=== PATIENT | male | born 1950 | race Caucasian/White ===

== ENCOUNTER 2020-07-06 10:12 | Emergency (ER) | payer MEDICARE ==
--- NOTE | 2020-07-06 11:43 | RAD ---
EXAM: Chest,1 View INDICATION: 70 years Male, Covid ? COMPARISON: None available FINDINGS: Single view of the chest was performed. Heart size is within normal limits. The examination is slightly underpenetrated. Hazy appearance of the peripheral midlung bilaterally is favored to be related to underpenetration, although it is difficult to exclude groundglass infiltrate which can be seen in COVID pneumonia. No pleural effusion. No pneumothorax. Remote right acromioclavicular joint deformity and distal left clavicle deformity. Unremarkable appearance of the visualized upper abdomen. IMPRESSION: Hazy appearance of the peripheral midlung bilaterally is favored to be related to underpenetration, although it is difficult to exclude groundglass infiltrate which can be seen in COVID pneumonia. Consider follow-up radiographs. Electronically signed by: Priya Arita MD 07/06/2020 11:41 AM [facility]
--- NOTE | 2020-07-06 12:23 | ED.PDOC ---
History of Present Illness - General Chief Complaint: Respiratory Problem Stated Complaint: Dyspnea, black diarrhea, lower back pain Time Seen by Provider: 07/06/20 10:21 Source: patient Exam Limitations: no limitations - History of Present Illness Initial Comments: 70-year-old male complaining of Covid symptoms for the last 2 days. Patient states that he has had a fever and chills, mild dyspnea worsening with exertion and a cough productive of minimal clear material. He complains of easy fatigue. Symptoms are worse with exertion. Patient has no known exposure to COVID-19. He has not had any upper respiratory symptoms.The patient notes incidentally that he has had diarrhea first occurring Several days ago. It is now slacked off and he has only had about 2 stools in the last 24 hours. His stools are very black. Patient denies abdominal pain or nausea vomiting. He has no prior history of gastrointestinal bleeding or GI problems. Timing/Duration: 1 week Severity: moderate Improving Factors: rest Worsening Factors: other - Exertion Associated Symptoms: cough Allergies/Adverse Reactions: Allergies Cephalexin [From Keflex] Allergy (Verified 07/06/20 11:30) Home Medications: Ambulatory Orders Albuterol 07/06/20 Review of Systems - Review of Systems Constitutional: States: chills, fever, malaise, weakness EENTM: States: no symptoms reported Respiratory: States: cough, short of breath Cardiology: States: no symptoms reported Gastrointestinal/Abdominal: States: see HPI, diarrhea Genitourinary: States: no symptoms reported Musculoskeletal: States: muscle pain Neurological: States: no symptoms reported Endocrine: States: no symptoms reported Past Medical History (General) - Patient Medical History Hx Seizures: No Hx Stroke: No Hx Dementia: No Hx Asthma: Yes Hx of COPD: No Hx Cardiac Disorders: No Hx Congestive Heart Failure: No Hx Pacemaker: No Hx Hypertension: No Hx Thyroid Disease: No Hx Diabetes: No Hx Gastroesophageal Reflux: Yes Hx Renal Disease: No Hx Cancer: No Hx of HIV: No Hx Hepatitis C: No Hx MRSA: No - Vaccination History Hx Influenza Vaccination: Yes Hx Pneumococcal Vaccination: Yes - Social History Hx Tobacco Use: No Hx Alcohol Use: No Family Medical History - Family History Mother Family History: Unknown Living Status: Unknown Physical Exam - Physical Exam General Appearance: Alert, No apparent distress Eye Exam: bilateral conjunctivae pale Ears, Nose, Throat: normal ENT inspection Neck: non-tender, supple Respiratory: lungs clear, normal breath sounds Cardiovascular/Chest: regular rate, rhythm Gastrointestinal/Abdominal: normal bowel sounds, non tender, soft Rectal Exam: other - Dark red stool present in the anal vault.Nursing animal therapist present during exam Extremity: normal range of motion, no pedal edema, no calf tenderness Neurologic: die engraver II-XII nml as tested, no motor/sensory deficits Skin Exam: other - Bilateral conjunctival pallor, pallor Lymphatic: no adenopathy Progress - Progress Progress: 07/06/20 12:27 Digital rectal examination performed with animal therapist present. No tenderness or abnormal lesions noted. Large amount of dark red blood present. No active bleeding from the anus noted. During the examination the patient stated he felt very dizzy but did not pass out. Transfusion request for 2 units packed cells entered.Discussed withMr. Vergara,[facility] need [facility] because GI consultation not available at this facility. Transfer decision made. 07/06/20 12:38 Pulse 98, sats 99%, blood pressure 128/75. IV infusion bolus normal saline 500 mL started. 07/06/20 13:15 At 1:04 PM [facility] transfer center was called to request a transfer bed. A report was given to the transfer nurse. Prior to that calls were made to [facility] in [place]. They had no beds. After that a call was made to [facility] which includes [facility] and other locations. They had no beds. 07/06/20 15:44 [facility] did not have a bed available. A call was placed to the transfer center at [facility]. [facility] request an inpatient bed for this patient. 07/06/20 16:46 Regular transfer center calls and reports no bed except for one facility which Does have a bed but requires a Covid PCR test before consideration. Covid PCR test ordered. 07/06/20 19:38 Covid PCR test results are still pending. Patient is currently receiving a second unit of transfusion. Repeat hemoglobin of 7.7 is noted. Surgeon on- call, Dr. Malik Castano was consulted at 6:30 PM. He stated he would be willing to admit the Patient to the hospital As long as there was no active bleeding. Patient notes he has not had a bowel movement since this morning. Nurse practitioner Jai was consulted at 6:36 PM and again at 7:31 PM. He stated there are now no beds available at [facility]. He recommended that we call the GI group solution spec and [place] to consult regarding the possibility of having the patient have a colonoscopy done here in 2 days. If this were to be arranged Mr. Vergara stated that he would be able to make a bed for the patient here at [facility] tomorrow. 07/06/20 23:37 At 11:35 PM I discussed his case with Dr. Whitten, the hospitalist on-call for [facility] in [place]. A bed was available and he agreed to admit the patient to the medical floor for consultation with the industrial relations worker. 07/07/20 03:58 The patient later left the emergency department by ambulance in good condition. - Results/Orders Results/Orders: 07/06/20 11:00 RAPID SARS-CoV-2 RNA Stat 07/06/20 11:35 PACKED CELLS,LR Routine TYPE AND SCREEN Routine Laboratory Results - last 24 hr 07/06/20 07/06/20 07/06/20 11:10 11:12 11:12 WBC 10.3 RBC 1.66 L Hgb 5.3 L* Hct 15.5 L MCV 93.4 MCH 32.1 H MCHC 34.4 RDW 14.1 Plt Count 183 MPV 6.8 L Absolute Neuts (auto) 8.50 H Absolute Lymphs (auto) 1.00 Absolute Monos (auto) 0.70 Absolute Eos (auto) 0.00 Absolute Basos (auto) 0.10 Neutrophils % 82.8 H Lymphocytes % 9.5 L Monocytes % 6.5 Eosinophils % 0.2 L Basophils % 1.0 PT 10.0 INR 1.01 PTT (SP) 18.0 L Sodium 130 L Potassium 4.3 Chloride 101 Carbon Dioxide 23 Anion Gap 10.3 L BUN 25 H Creatinine 0.97 BUN/Creatinine Ratio 25.8 H Random Glucose 134 H Serum Osmolality 267.2 L Calcium 7.8 L Total Bilirubin 0.3 AST 18 ALT 18 Alkaline Phosphatase 33 L Serum Total Protein 5.1 L Albumin 3.2 Globulin 1.9 L Albumin/Globulin Ratio 1.7 Crossmatch 07/06/20 11:35 WBC RBC Hgb Hct MCV MCH MCHC RDW Plt Count MPV Absolute Neuts (auto) Absolute Lymphs (auto) Absolute Monos (auto) Absolute Eos (auto) Absolute Basos (auto) Neutrophils % Lymphocytes % Monocytes % Eosinophils % Basophils % PT INR PTT (SP) Sodium Potassium Chloride Carbon Dioxide Anion Gap BUN Creatinine BUN/Creatinine Ratio Random Glucose Serum Osmolality Calcium Total Bilirubin AST ALT Alkaline Phosphatase Serum Total Protein Albumin Globulin Albumin/Globulin Ratio Crossmatch See Detail Vital Signs - 24 hr 07/06/20 07/06/20 10:25 12:01 Temperature 98 F Pulse Rate [ 96 H Right Radial] Respiratory 22 20 Rate O2 Sat by Pulse 99 Oximetry EXAM: Chest,1 View INDICATION: 70 years Male, Covid ? COMPARISON: None available FINDINGS: Single view of the chest was performed. Heart size is within normal limits. The examination is slightly underpenetrated. Hazy appearance of the peripheral midlung bilaterally is favored to be related to underpenetration, although it is difficult to exclude groundglass infiltrate which can be seen in COVID pneumonia. No pleural effusion. No pneumothorax. Remote right acromioclavicular joint deformity and distal left clavicle deformity. Unremarkable appearance of the visualized upper abdomen. IMPRESSION: Hazy appearance of the peripheral midlung bilaterally is favored to be related to underpenetration, although it is difficult to exclude groundglass infiltrate which can be seen in COVID pneumonia. Consider follow-up radiographs. Electronically signed by: Priya Arita MD 07/06/2020 11:41 AM ADMINISTRATIVE JUDGE COVID-19 nasal swab negative Vital Signs - 24 hr 07/06/20 07/06/20 07/06/20 10:25 11:13 12:01 Temperature 98 F 98 F Pulse Rate [ 96 H 87 Right Radial] Respiratory 22 18 20 Rate Blood Pressure 114/77 [Left Arm] O2 Sat by Pulse 99 96 Oximetry 07/06/20 07/06/20 07/06/20 12:13 13:00 13:16 Temperature 97.6 F 97.6 F 98 F Pulse Rate [ 81 79 74 Right Radial] Respiratory 18 18 18 Rate Blood Pressure 115/73 114/74 112/72 [Left Arm] O2 Sat by Pulse 99 99 99 Oximetry 07/06/20 07/06/20 07/06/20 13:30 13:45 14:00 Temperature 98.1 F 97.9 F 98.1 F Pulse Rate [ 76 72 74 Right Radial] Respiratory 18 18 18 Rate Blood Pressure 114/74 106/70 114/76 [Left Arm] O2 Sat by Pulse 99 99 99 Oximetry 07/06/20 07/06/20 07/06/20 15:00 15:15 17:00 Temperature 97.5 F L 97.9 F Pulse Rate [ 76 74 76 Right Radial] Respiratory 18 18 16 Rate Blood Pressure 117/79 112/72 128/91 [Left Arm] O2 Sat by Pulse 99 99 96 Oximetry 07/06/20 07/06/20 07/06/20 18:00 19:00 19:28 Temperature 99.2 F Pulse Rate [ 78 82 Right Radial] Respiratory 16 16 Rate Blood Pressure 134/70 137/80 [Left Arm] O2 Sat by Pulse 92 L 98 Oximetry 07/06/20 07/06/20 07/06/20 20:00 21:00 22:00 Temperature Pulse Rate [ 83 86 92 H Right Radial] Respiratory 14 14 14 Rate Blood Pressure 128/80 99/53 117/78 [Left Arm] O2 Sat by Pulse 96 93 L 93 L Oximetry 07/06/20 07/07/20 07/07/20 23:00 00:00 00:13 Temperature 99.3 F 99.3 F Pulse Rate [ 90 89 89 Right Radial] Respiratory 16 16 16 Rate Blood Pressure 96/65 99/67 99/67 [Left Arm] O2 Sat by Pulse 94 L 94 L 94 L Oximetry - EKG/XRAY/CT CT Ordered: No CT Interpretation Call Back: No Departure - Departure Clinical Impression: Peptic ulcer, Anemia GI bleeding Qualifiers: GI bleed type/associated pathology: unspecified gastrointestinal hemorrhage type Qualified Code(s): K92.2 - Gastrointestinal hemorrhage, unspecified ICD-10 Supporting Text: Lower versus upper gastrointestinal bleeding with severe anemia Requiring transfusion Disposition: Transfer to Hospital Departure Forms: ED Discharge - Pt. Copy, Patient Portal Self Enrollment Home Medications: Ambulatory Orders Albuterol 07/06/20 Transfer to Outside Facility - Transfer Information Decision to Transfer Date: 07/06/20 Decision to Transfer Time: 12:29 Reason for Transfer: required specialist not available
[2020-07-06] MEDS ORDERED: ACETAMINOPHEN 325 MG TAB PO ONE (12:26)
[2020-07-06] MEDS ORDERED: diphenhydrAMINE HCL 50 MG/ML VIAL IV ONE (12:26)
[2020-07-06] MEDS ORDERED: SODIUM CHLORIDE 0.9% 500ML 500 ML IVS SCH (12:30)
[2020-07-06] MEDS ORDERED: PANTOPRAZOLE SODIUM IV 40 MG VIAL IV ONE (21:47)
[2020-07-06] MEDS ORDERED: FAMOTIDINE IV PREMIX 20 MG in PREMIX BAG 1 BAG IVPB ONE (21:47)
[2020-07-06 23:50] VITALS: TEMP 99.3; O2SAT 94
[2020-07-07 00:08] VITALS: BP 99/67
== END 2020-07-07 00:34 | disposition short-term general hospital (02) ==
LOC: ER 10:12
DX: K92.2 Gastrointestinal hemorrhage, unspecified (principal); K27.4 Chronic or unspecified peptic ulcer, site unspecified, with hemorrhage; D50.0 Iron deficiency anemia secondary to blood loss (chronic); U07.1 COVID-19; K21.9 Gastro-esophageal reflux disease without esophagitis; J45.909 Unspecified asthma, uncomplicated; Z88.1 Allergy status to other antibiotic agents
CPT/HCPCS: 36415; 71045; 80053; 82270; 85025; 85610; 85730; 86850; 86900; 86901; 86922; 87486; 87581; 87633; 87635; 96365; 96375; 99285; J1200; J3490; J7040; P9016

== ENCOUNTER 2020-08-09 19:53 | Emergency (ER) | payer MEDICARE ==
--- NOTE | 2020-08-09 19:56 | ED.PDOC ---
History of Present Illness - General Stated Complaint: General weakness, low oxygen Time Seen by Provider: 08/09/20 19:55 Source: patient Exam Limitations: no limitations Additional Information: Patient transferred from this facility to [facility] in [place] on July 06 for severe anemia with a hemoglobin of 5.2. Patient was transfused at this facility and the receiving facility. 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 Patient has a history of COPD. - History of Present Illness Initial Comments: Patient complains of general weakness for the last 10 days. He also complains of intermittent shortness of breath and oxygen at home down to 90%. He has had a prominent dry cough. Denies fever chills or malaise. Patient has nasal congestion which is chronic for him. He has not had any nasal discharge. Patient complains of wax buildup in both ears. Patient does not have any gastrointestinal symptoms. He denies abdominal pain, melena, hematochezia. Timing/Duration: 1 week Severity: mild, moderate Improving Factors: nothing Worsening Factors: nothing Associated Symptoms: cough, shortness of breath, weakness - Generalized Allergies/Adverse Reactions: Allergies Cephalexin [From Keflex] Allergy (Verified 08/09/20 20:11) Penicillins Allergy (Verified 08/09/20 20:11) Home Medications: Ambulatory Orders Albuterol PRN 07/06/20 Fluticasone/Salmeterol 100/50 [Advair 100/50 Diskus] 1 puff PRN 08/09/20 Review of Systems - Review of Systems Constitutional: States: see HPI, weakness - General . Denies: chills, fever, malaise EENTM: States: see HPI, nose congestion, other - Earwax Respiratory: States: see HPI, cough, short of breath Cardiology: States: no symptoms reported. Denies: chest pain Gastrointestinal/Abdominal: States: no symptoms reported. Denies: abdominal pain Genitourinary: States: no symptoms reported Musculoskeletal: States: no symptoms reported Skin: States: no symptoms reported Neurological: States: no symptoms reported Endocrine: States: no symptoms reported Hematologic/Lymphatic: States: no symptoms reported Past Medical History (General) - Patient Medical History Hx Seizures: No Hx Stroke: No Hx Dementia: No Hx Asthma: Yes Hx of COPD: No Hx Cardiac Disorders: No Hx Congestive Heart Failure: No Hx Pacemaker: No Hx Hypertension: No Hx Thyroid Disease: No Hx Diabetes: No Hx Gastroesophageal Reflux: Yes Hx Renal Disease: No Hx Cancer: No Hx of HIV: No Hx Hepatitis C: No Hx MRSA: No - Vaccination History Hx Influenza Vaccination: Yes Hx Pneumococcal Vaccination: Yes - Social History Hx Tobacco Use: No Hx Alcohol Use: No Family Medical History - Family History Mother Family History: Unknown Living Status: Unknown Physical Exam - Physical Exam General Appearance: Alert, Comfortable Eye Exam: bilateral normal Ears, Nose, Throat: hearing grossly normal, normal pharynx, other - Impacted cerumen bilateral external auditory canals. Neck: non-tender, full range of motion Respiratory: normal breath sounds, no respiratory distress Cardiovascular/Chest: regular rate, rhythm Gastrointestinal/Abdominal: normal bowel sounds, non tender, soft Back Exam: normal inspection, no CVA tenderness Extremity: normal range of motion, no pedal edema, no calf tenderness Neurologic: polygraph examiner II-XII nml as tested, no motor/sensory deficits, normal mood/affect, oriented x 3 Skin Exam: normal color, warm/dry Lymphatic: no adenopathy Progress - Progress Progress: 08/09/20 21:06 Medical decision makin-year-old male with history of COPD complaining of general weakness primarily with some occasional shortness of breath and saturations as low as 90%. He has not had a fever but he has had a dry cough. Covid test is negative. Chest x-ray is negative. Patient does not appear to have COVID-19. 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 Hemoglobin was 5.3 at that time it is now a little over 10. Patient denies melena or h ematochezia to suggest rebleeding. His weakness is likely due to his continued anemia which will improve with further resolution of his anemia. He is current laying not taking iron and this will be recommended for him. - Results/Orders Results/Orders: Electrocardiogram: Normal sinus rhythm, 72/min, incomplete right bundle branch block with QRS duration 98 ms, no acute STT changes. Nasal swab for rapid COVID-19 testing negative. Single view chest x-ray showed no acute pulmonary disease. 08/09/20 20:15 EKG STAT 08/09/20 20:28 CARDIAC ENZYME GROUP Stat COMPLETE METABOLIC PROFILE Stat Laboratory Results - last 24 hr 08/09/20 08/09/20 20:28 20:28 WBC 6.6 RBC 3.75 L Hgb 10.3 L Hct 32.0 L MCV 85.3 MCH 27.6 MCHC 32.3 L RDW 15.9 H Plt Count 269 MPV 7.2 L Absolute Neuts (auto) 3.70 Absolute Lymphs (auto) 1.40 Absolute Monos (auto) 0.80 Absolute Eos (auto) 0.50 H Absolute Basos (auto) 0.10 Neutrophils % 56.0 Lymphocytes % 21.6 Monocytes % 12.6 H Eosinophils % 7.7 H Basophils % 2.1 H Sodium 139 Potassium 4.0 Chloride 104 Carbon Dioxide 24 Anion Gap 15.0 BUN 16 Creatinine 1.11 BUN/Creatinine Ratio 14.4 Random Glucose 92 Serum Osmolality 278.4 Calcium 8.8 Total Bilirubin 0.2 AST 17 ALT 19 Alkaline Phosphatase 70 Creatine Kinase 80 CK-MB (CK-2) 1.5 Troponin I < 0.02 Serum Total Protein 6.8 Albumin 3.8 Globulin 3.0 Albumin/Globulin Ratio 1.3 Vital Signs - 24 hr 08/09/20 19:57 Temperature 98.5 F Pulse Rate [ 88 Pulse Ox] Respiratory 18 Rate Blood Pressure 149/100 [Left Arm] O2 Sat by Pulse 95 Oximetry Departure - Departure Clinical Impression: General weakness, Anemia, COPD (chronic obstructive pulmonary disease) Time of Disposition: 21:09 Disposition: Discharge to Home or Self Care Condition: Good Diet: resume usual diet Referrals: ITALIA FROST [Primary Care Provider] - 1-2 Weeks Home Medications: Ambulatory Orders Albuterol PRN 07/06/20 Fluticasone/Salmeterol 100/50 [Advair 100/50 Diskus] 1 puff PRN 08/09/20 Additional Instructions: Take 1 [id number] 325 mg iron pill twice a day. This may discolor your stools and make them black. Return if you have significantly increasing shortness of breath, significantly decreasing oxygen saturations below 90%, or high fever or feeling acutely ill. See your doctor as soon as possible for further care and monitoring.
[2020-08-09 20:08] VITALS: O2SAT 95
--- NOTE | 2020-08-09 20:55 | RAD ---
EXAM DESCRIPTION: Chest,1 View CLINICAL HISTORY: Short of breath COMPARISON: July 06, 2020 FINDINGS: Cardiac silhouette is within normal limits. There is no focal parenchymal or pleural disease. There is no acute osseous process visualized. IMPRESSION: No evidence of acute cardiopulmonary disease. Electronically signed by: Ken Martínez MD 08/09/2020 8:54 PM SKIN SPECIALIST
[2020-08-09 21:51] VITALS: BP 146/96; TEMP 97.9
== END 2020-08-09 21:15 | disposition home or self-care (01) ==
LOC: ER 19:53
DX: D64.9 Anemia, unspecified (principal); R53.1 Weakness; J44.9 Chronic obstructive pulmonary disease, unspecified; I45.10 Unspecified right bundle-branch block; K21.9 Gastro-esophageal reflux disease without esophagitis; Z20.822 Contact with and (suspected) exposure to COVID-19; Z98.890 Other specified postprocedural states; Z88.1 Allergy status to other antibiotic agents; Z88.0 Allergy status to penicillin; Z79.899 Other long term (current) drug therapy